=== PATIENT | male | born 1955 | race African-American/Black ===

== ENCOUNTER 2018-10-25 09:11 | Inpatient (IN) | payer BC ==
[~2018-10-25 09:11] MED LIST: VASOPRESSIN 20 UNITS INJ IV
[2018-10-25] MEDS ORDERED: LACTATED RINGER'S 1,000 ML IV (09:30)
[2018-10-25] MEDS ORDERED: LIDOCAINE 1%/EPI 30 ML INJ (12:20)
[2018-10-25] MEDS ORDERED: GELATIN SIZE 100 SPONGE (12:20)
[2018-10-25] MEDS ORDERED: THROMBIN 5000 UNIT (RECOTHROM) VIAL (12:20)
[2018-10-25] MEDS ORDERED: POLYMYXIN/BACITRACIN 1L IRRIG (12:21)
[2018-10-25] MEDS ORDERED: LIDOCAINE 0.5% (SDV) 50 ML INJ (12:21)
[2018-10-25] MEDS ORDERED: HYDROmorphONE 1 MG/5 ML IV SYRINGE IV ×3 (12:30)
[2018-10-25] MEDS ORDERED: hydrALAzine 20 MG INJ IV ×2 (12:30→17:00)
[2018-10-25] MEDS ORDERED: LABETALOL HCL 20MG INJ IV (12:30)
[2018-10-25] MEDS ORDERED: ROCURONIUM 50 MG INJ (12:37)
[2018-10-25] MEDS ORDERED: SUCCINYLCHOLINE CHLORIDE 100 MG/5 ML SYG IV (12:37)
[2018-10-25] MEDS ORDERED: PROPOFOL 20 ML (12:37)
[2018-10-25] MEDS ORDERED: DESFLURANE 15 MIN (12:37)
[2018-10-25] MEDS ORDERED: LIDOCAINE 1% (MDV) 20 ML INJ (12:37)
[2018-10-25] MEDS ORDERED: MIDAZOLAM 1 MG/ML 2 ML INJ (12:37)
[2018-10-25] MEDS ORDERED: EPINEPHrine 0.1 MG/ML SYG (12:37)
[2018-10-25] MEDS: CEFAZOLIN 2 GM/50 ML (PMX) 50 ML (FOR WT < 120 KG) IVPB (12:59)
[2018-10-25] MEDS ORDERED: CEFAZOLIN 1 GM INJ (13:06)
[2018-10-25 14:36] LABS: ADD MAN DIFF? NO
[2018-10-25 14:37] LABS: BASOPHILS % 0.6 % (0.0-2.0); EOSINOPHILS # 0.1 10^3/ul (0.0-0.5); EOSINOPHILS % 1.5 % (0.0-7.0); HEMATOCRIT 34.7 % (42.0-52.0); HEMOGLOBIN 11.1 g/dl (14.0-18.0); LYMPHOCYTES # 1.3 10^3/ul (0.8-2.9); LYMPHOCYTES % 28.3 % (15.0-51.0); MEAN CORPUSCULAR VOLUME 87.4 fl (82.0-101.0); MEAN PLATELET VOLUME 10.2 fl (7.4-10.4); MONOCYTE # 0.4 10^3/ul (0.3-0.9); MONOCYTES % 8.1 % (0.0-11.0); NEUTROPHIL # 2.9 10^3/ul (1.6-7.5); NEUTROPHILS % 61.3 % (39.0-77.0); PLATELET COUNT 165 10^3/UL (140-415); RED BLOOD COUNT 3.97 10^6/ul (4.70-6.10); RED CELL DISTRIBUTION WIDTH 13.7 % (11.5-14.5)
[2018-10-25 14:37] LABS: WHITE BLOOD COUNT 4.7 10^3/ul (4.8-10.8)
[2018-10-25 14:56] LABS: ANION GAP 8 (5-13); BLOOD UREA NITROGEN 13 mg/dl (7-20); CALCIUM 9.1 mg/dl (8.4-10.2); CARBON DIOXIDE 28 mmol/L (21-31); CHLORIDE 102 mmol/L (97-110); Estimated GFR > 60 mL/min (>60); GLUCOSE 110 mg/dl (70-220); MAGNESIUM 1.6 mg/dl (1.7-2.5); POTASSIUM 3.5 mmol/L (3.5-5.1); SODIUM 138 mmol/L (135-144)
[2018-10-25 15:08] LABS: TROPONIN-I < 0.012 ng/ml (0.000-0.120)
[2018-10-25] MEDS ORDERED: ACETAMINOPHEN 325 MG TAB PO (15:30)
[2018-10-25] MEDS ORDERED: DOCUSATE SODIUM 100 MG CAP PO (15:30)
[2018-10-25] MEDS ORDERED: ONDANSETRON 4 MG INJ IV (15:30)
[2018-10-25] MEDS: MAGNESIUM SULFATE 2 GM/50 ML 50 ML IVPB (16:01)
[2018-10-25] MEDS: SOD CHLORIDE 0.9% 1,000 ML IV (16:04)
[2018-10-25 18:34] LABS: CREATINE KINASE 279 IU/L (23-200)
[2018-10-25 18:47] LABS: CK INDEX 1.1
[2018-10-25 18:51] LABS: CK-MB 3.17 ng/ml (0.0-2.4)
[2018-10-25 19:21] LABS: B-TYPE NATRIURETIC PEPTIDE 97 PG/ML (0-125)
[2018-10-25] MEDS: GABAPENTIN 100 MG CAP PO (21:31)
[2018-10-25 22:36] LABS: CREATINE KINASE 396 IU/L (23-200)
[2018-10-25 22:49] LABS: CK INDEX 0.9; TROPONIN-I 0.039 ng/ml (0.000-0.120)
[2018-10-26 06:06] LABS: CHOLESTEROL 160 mg/dl (100-200)
[2018-10-26 06:06] LABS: CHOL/HDL RATIO 2.8 RATIO; HDL CHOLESTEROL 57 mg/dl (30-78); LDL CHOLESTEROL,CALCULATED 87 mg/dl; TRIGLYCERIDES 78 mg/dl (0-149)
[2018-10-26] MEDS: SOD CHLORIDE 0.9% 1,000 ML IV (06:23)
[2018-10-26] MEDS: PANTOPRAZOLE (EC) 40 MG TAB PO (06:24)
[2018-10-26] MEDS: ESCITALOPRAM 10 MG TAB PO (08:45)
[2018-10-26] MEDS: ALLOPURINOL 100 MG TAB PO (08:45)
[2018-10-26] MEDS: AMLODIPINE 5 MG TAB PO (08:47)
[2018-10-26] MEDS: GABAPENTIN 100 MG CAP PO (08:47)
[2018-10-26] MEDS: REGADENOSON 0.4 MG/5 ML SYG (11:37)
== END 2018-10-26 18:38 | disposition home or self-care (01) | DRG 552 ==
LOC: REC 09:11 → 6WM 16:44
DX: M48.02 Spinal stenosis, cervical region (principal); G95.29 Other cord compression; Z53.09 Procedure and treatment not carried out because of other contraindication; I10 Essential (primary) hypertension; E78.5 Hyperlipidemia, unspecified; I95.2 Hypotension due to drugs; T41.1X5A Adverse effect of intravenous anesthetics, initial encounter; Y92.234 Operating room of hospital as the place of occurrence of the external cause; R00.1 Bradycardia, unspecified; N40.0 Benign prostatic hyperplasia without lower urinary tract symptoms
CPT/HCPCS: 78452; 80048; 80061; 82550; 82553; 83735; 83880; 84443; 84484; 85025; 86850; 86900; 86901; 93005; 93017; 93306